=== PATIENT | male | born 1965 | race Caucasian/White ===

== ENCOUNTER → 2023-08-17 06:21 | Day surgery (SDC) | payer OTHER, SELFPAY ==
[2023-08-17 07:47] LABS: Glucose - Point of Care 111 mg/dl (70-99)
== END ==
LOC: GI 06:21
PROVIDERS: ATTENDING PHYSICIAN Internal Medicine Gastroenterology
DX: Z12.11 Encounter for screening for malignant neoplasm of colon (principal); K64.8 Other hemorrhoids
CPT/HCPCS: G0105; 82962